=== PATIENT | female | born 1940 | race Caucasian/White ===

== ENCOUNTER 2022-02-08 08:48 | Inpatient (IN) | payer MEDICARE, OTHER ==
[2022-02-08] MEDS ORDERED: Sodium Chloride 0.9% 1,000 ML IV ONE (08:58)
[2022-02-08] MEDS ORDERED: Sodium Chloride 0.9% 10 ML Syringe FLUSH PRN (08:58)
[2022-02-08] MEDS ORDERED: Albuterol/Ipratropium 3.0-0.5 MG/3 ML Neb Soln NEB ONE ×2 (09:00→10:24)
[2022-02-08] MEDS ORDERED: Ondansetron 4 MG/2 ML SDV IVPUSH ONE (09:35)
[2022-02-08 09:54] LABS: ANION GAP 10.6 mmol/L (5-15); CHLORIDE,CL 95 mmol/L (98-107); SODIUM,NA 131 mmol/L (136-145)
[2022-02-08] MEDS ORDERED: Albuterol/Ipratropium 3.0-0.5 MG/3 ML Neb Soln ONE (10:25)
[2022-02-08] MEDS ORDERED: Iopamidol 755 Mg/ML 75 ML Bottle IVPUSH ONE (10:27)
[2022-02-08] MEDS ORDERED: Sodium Chloride 0.9% 100 ML IV SCH (10:30)
[2022-02-08] MEDS ORDERED: Piperacillin/Tazobactam 4.5 GM in Sodium Chloride 0.9% 100 ML IV ONE (11:44)
[2022-02-08] MEDS ORDERED: Acetaminophen 325 MG Tab PO PRN (12:34)
[2022-02-08] MEDS ORDERED: Rosuvastatin 10 MG Tab PO SCH (12:45)
[2022-02-08] MEDS ORDERED: Levofloxacin/Dextrose 5%-Water 750 MG in Premix Bag 1 BAG IV SCH (13:00)
[2022-02-08] MEDS ORDERED: Calcium Carbonate 600 MG Tab PO SCH (13:30)
[2022-02-08] MEDS: DULoxetine 30 MG Cap PO SCH (13:35)
[2022-02-08] MEDS: Lutein/Minerals/Vitamins A, C & E Tab PO SCH (13:35)
[2022-02-08] MEDS: Multivitamins with Minerals/Iron/Folic Acid/Lycopene Tab PO SCH (13:35)
[2022-02-08] MEDS: Calcium Carbonate 600 MG Tab PO SCH ×2 (13:35→20:05)
[2022-02-08] MEDS ORDERED: Sodium Chloride 0.9% 1,000 ML IV SCH ×2 (15:45→19:30)
[2022-02-08] MEDS: Albuterol/Ipratropium 3.0-0.5 MG/3 ML Neb Soln NEB PRN (15:53)
[2022-02-08] MEDS ORDERED: Sodium Chloride 0.9% 500 ML IV SCH (19:10)
[2022-02-08 19:20] LABS: O2 DELIVERY DEVICE NASAL CANNULA
[2022-02-08 19:21] LABS: BASE EXCESS ARTERIAL -3 mmol/L (-2-3); BICARBONATE,ARTERIAL 22.4 mmol/L (22-26); O2 SATURATION ARTERIAL 94 % (95-98); PCO2 ARTERIAL 39 mmHG (35-45); PO2 ARTERIAL 75 mmHG (80-105)
[2022-02-08] MEDS: rOPINIRole 0.25 MG Tab PO SCH (20:05)
[2022-02-08] MEDS: Latanoprost 0.005% Ophth Soln 2.5 ML Bottle EYEBOTH SCH (20:05)
[2022-02-08] MEDS ORDERED: Ibuprofen 400 MG Tab PO PRN (20:33)
[2022-02-09] MEDS: Ondansetron 4 MG Tab.DIS PO PRN ×2 (01:02→17:25)
[2022-02-09] MEDS ORDERED: Sodium Chloride 0.9% 1,000 ML IV ONE ×2 (01:12→01:25)
[2022-02-09 07:53] LABS: ANION GAP 9.5 mmol/L (5-15)
[2022-02-09] MEDS: Multivitamins with Minerals/Iron/Folic Acid/Lycopene Tab PO SCH (08:53)
[2022-02-09] MEDS: Lutein/Minerals/Vitamins A, C & E Tab PO SCH (08:53)
[2022-02-09] MEDS: Calcium Carbonate 600 MG Tab PO SCH ×2 (08:53→20:21)
[2022-02-09] MEDS: Pantoprazole 40 MG Tab.CR PO SCH (08:53)
[2022-02-09] MEDS: DULoxetine 30 MG Cap PO SCH (08:53)
[2022-02-09] MEDS ORDERED: Losartan 50 MG Tab PO SCH (09:00)
[2022-02-09] MEDS ORDERED: Magnesium Hydroxide 400 MG/5 ML Susp 30 ML Cup PO SCH (09:00)
[2022-02-09] MEDS: Enoxaparin 40 MG/0.4 ML Syringe SUBCUT SCH (10:37)
[2022-02-09] MEDS: Sodium Chloride 0.9% 150 ML Bag IV PRN (13:02)
[2022-02-09] MEDS: Levofloxacin/Dextrose 5%-Water 750 MG in Premix Bag 1 BAG IV SCH (14:53)
[2022-02-09] MEDS: rOPINIRole 0.25 MG Tab PO SCH (20:20)
[2022-02-09] MEDS: Rosuvastatin 10 MG Tab PO SCH (20:20)
[2022-02-09] MEDS: Magnesium Hydroxide 400 MG/5 ML Susp 30 ML Cup PO SCH (20:21)
[2022-02-09] MEDS: Latanoprost 0.005% Ophth Soln 2.5 ML Bottle EYEBOTH SCH (20:32)
[2022-02-09] MEDS: Albuterol/Ipratropium 3.0-0.5 MG/3 ML Neb Soln NEB PRN (22:55)
[2022-02-10] MEDS: Albuterol/Ipratropium 3.0-0.5 MG/3 ML Neb Soln NEB PRN ×2 (03:07→08:27)
[2022-02-10 07:58] LABS: ANION GAP 9.4 mmol/L (5-15); CHLORIDE,CL 99 mmol/L (98-107); SODIUM,NA 132 mmol/L (136-145)
[2022-02-10] MEDS: Calcium Carbonate 600 MG Tab PO SCH ×2 (08:11→20:24)
[2022-02-10] MEDS: Multivitamins with Minerals/Iron/Folic Acid/Lycopene Tab PO SCH (08:12)
[2022-02-10] MEDS: DULoxetine 30 MG Cap PO SCH (08:12)
[2022-02-10] MEDS: Lutein/Minerals/Vitamins A, C & E Tab PO SCH (08:12)
[2022-02-10] MEDS: Pantoprazole 40 MG Tab.CR PO SCH (08:12)
[2022-02-10] MEDS: Enoxaparin 40 MG/0.4 ML Syringe SUBCUT SCH (10:14)
[2022-02-10] MEDS: predniSONE 20 MG Tab PO SCH (11:23)
[2022-02-10] MEDS: guaiFENesin 600 MG Tab.ER PO SCH ×2 (11:23→20:24)
[2022-02-10] MEDS: Losartan 50 MG Tab PO SCH (11:24)
[2022-02-10] MEDS: Albuterol/Ipratropium 3.0-0.5 MG/3 ML Neb Soln NEB SCH ×3 (12:46→20:26)
[2022-02-10] MEDS: Levofloxacin/Dextrose 5%-Water 750 MG in Premix Bag 1 BAG IV SCH (14:54)
[2022-02-10] MEDS: Rosuvastatin 10 MG Tab PO SCH (20:24)
[2022-02-10] MEDS: Melatonin 3 MG Tab PO SCH (20:25)
[2022-02-10] MEDS: rOPINIRole 0.25 MG Tab PO SCH (20:25)
[2022-02-10] MEDS: Magnesium Hydroxide 400 MG/5 ML Susp 30 ML Cup PO SCH (20:26)
[2022-02-10] MEDS: Latanoprost 0.005% Ophth Soln 2.5 ML Bottle EYEBOTH SCH (20:28)
[2022-02-10] MEDS: Ondansetron 4 MG Tab.DIS PO PRN (22:20)
[2022-02-11] MEDS: Albuterol/Ipratropium 3.0-0.5 MG/3 ML Neb Soln NEB SCH ×6 (01:23→20:55)
[2022-02-11 08:14] LABS: ANION GAP 9.3 mmol/L (5-15); CHLORIDE,CL 100 mmol/L (98-107); SODIUM,NA 137 mmol/L (136-145)
[2022-02-11] MEDS: DULoxetine 30 MG Cap PO SCH (09:34)
[2022-02-11] MEDS: guaiFENesin 600 MG Tab.ER PO SCH ×2 (09:34→20:56)
[2022-02-11] MEDS: Multivitamins with Minerals/Iron/Folic Acid/Lycopene Tab PO SCH (09:34)
[2022-02-11] MEDS: predniSONE 20 MG Tab PO SCH (09:35)
[2022-02-11] MEDS: Losartan 50 MG Tab PO SCH (09:35)
[2022-02-11] MEDS: Calcium Carbonate 600 MG Tab PO SCH ×2 (09:35→20:56)
[2022-02-11] MEDS: Lutein/Minerals/Vitamins A, C & E Tab PO SCH (09:35)
[2022-02-11] MEDS: Enoxaparin 40 MG/0.4 ML Syringe SUBCUT SCH (09:35)
[2022-02-11] MEDS: Pantoprazole 40 MG Tab.CR PO SCH (09:35)
[2022-02-11] MEDS: Levofloxacin/Dextrose 5%-Water 750 MG in Premix Bag 1 BAG IV SCH (15:45)
[2022-02-11] MEDS: Sodium Chloride 0.9% 150 ML Bag IV PRN (16:48)
[2022-02-11] MEDS ORDERED: Saliva Substitute Oral Spray 120 ML Bottle MUCMEM PRN (17:08)
[2022-02-11] MEDS ORDERED: Sodium Chloride 0.9% 100 ML IV SCH (19:45)
[2022-02-11] MEDS: Piperacillin/Tazobactam/Dext 3.375 GM in Premix Bag 1 BAG IV SCH (20:54)
[2022-02-11] MEDS: Rosuvastatin 10 MG Tab PO SCH (20:55)
[2022-02-11] MEDS: Magnesium Hydroxide 400 MG/5 ML Susp 30 ML Cup PO SCH (20:55)
[2022-02-11] MEDS: Melatonin 3 MG Tab PO SCH (20:55)
[2022-02-11] MEDS: rOPINIRole 0.25 MG Tab PO SCH (20:56)
[2022-02-11] MEDS: Latanoprost 0.005% Ophth Soln 2.5 ML Bottle EYEBOTH SCH (20:57)
[2022-02-12] MEDS: Piperacillin/Tazobactam/Dext 3.375 GM in Premix Bag 1 BAG IV SCH ×4 (01:23→17:20)
[2022-02-12] MEDS: Albuterol/Ipratropium 3.0-0.5 MG/3 ML Neb Soln NEB SCH ×6 (01:23→20:39)
[2022-02-12] MEDS: Multivitamins with Minerals/Iron/Folic Acid/Lycopene Tab PO SCH (08:12)
[2022-02-12] MEDS: guaiFENesin 600 MG Tab.ER PO SCH ×2 (08:12→20:39)
[2022-02-12] MEDS: Calcium Carbonate 600 MG Tab PO SCH ×2 (08:12→20:40)
[2022-02-12] MEDS: predniSONE 20 MG Tab PO SCH (08:12)
[2022-02-12] MEDS: Losartan 50 MG Tab PO SCH (08:13)
[2022-02-12] MEDS: DULoxetine 30 MG Cap PO SCH (08:13)
[2022-02-12] MEDS: Lutein/Minerals/Vitamins A, C & E Tab PO SCH (08:13)
[2022-02-12] MEDS: Pantoprazole 40 MG Tab.CR PO SCH (08:13)
[2022-02-12 08:34] LABS: ANION GAP 8.3 mmol/L (5-15); CHLORIDE,CL 103 mmol/L (98-107); SODIUM,NA 140 mmol/L (136-145)
[2022-02-12] MEDS: Enoxaparin 40 MG/0.4 ML Syringe SUBCUT SCH (10:14)
[2022-02-12] MEDS ORDERED: Potassium Chloride 20 MEQ Tab.ER PO ONE (11:51)
[2022-02-12] MEDS: Rosuvastatin 10 MG Tab PO SCH (20:39)
[2022-02-12] MEDS: rOPINIRole 0.25 MG Tab PO SCH (20:39)
[2022-02-12] MEDS: Magnesium Hydroxide 400 MG/5 ML Susp 30 ML Cup PO SCH (20:39)
[2022-02-12] MEDS: Melatonin 3 MG Tab PO SCH (20:40)
[2022-02-12] MEDS: Latanoprost 0.005% Ophth Soln 2.5 ML Bottle EYEBOTH SCH (20:41)
[2022-02-13] MEDS: Albuterol/Ipratropium 3.0-0.5 MG/3 ML Neb Soln NEB SCH ×4 (00:01→13:18)
[2022-02-13] MEDS: Piperacillin/Tazobactam/Dext 3.375 GM in Premix Bag 1 BAG IV SCH ×3 (00:03→12:54)
[2022-02-13 08:12] LABS: CHLORIDE,CL 105 mmol/L (98-107); SODIUM,NA 141 mmol/L (136-145)
[2022-02-13] MEDS: Calcium Carbonate 600 MG Tab PO SCH (08:45)
[2022-02-13] MEDS: Lutein/Minerals/Vitamins A, C & E Tab PO SCH (08:45)
[2022-02-13] MEDS: DULoxetine 30 MG Cap PO SCH (08:45)
[2022-02-13] MEDS: Multivitamins with Minerals/Iron/Folic Acid/Lycopene Tab PO SCH (08:45)
[2022-02-13] MEDS: guaiFENesin 600 MG Tab.ER PO SCH (08:46)
[2022-02-13] MEDS: predniSONE 20 MG Tab PO SCH (08:47)
[2022-02-13] MEDS: Pantoprazole 40 MG Tab.CR PO SCH (08:47)
[2022-02-13] MEDS: Losartan 50 MG Tab PO SCH (08:48)
[2022-02-13] MEDS: Enoxaparin 40 MG/0.4 ML Syringe SUBCUT SCH ×2 (08:55→10:00)
[2022-02-13 11:34] VITALS: BP 141/61
[2022-02-13 13:21] VITALS: PULSE 93
[2022-02-13] MEDS ORDERED: Potassium Chloride 10 MEQ Tab.ER PO ONE (14:44)
[2022-02-14] MEDS ORDERED: predniSONE 20 MG Tab PO SCH (09:00)
== END 2022-02-13 14:48 | disposition swing bed (61) | DRG 193 ==
LOC: KA.ED 08:48 → KA.MS 11:56
PROVIDERS: ADMIT Physician Assistant Medical; ATTEND Student in an Organized Health Care Education/Training Program
DX: J15.4 Pneumonia due to other streptococci (principal); J96.01 Acute respiratory failure with hypoxia; E87.1 Hypo-osmolality and hyponatremia; E87.6 Hypokalemia; D64.9 Anemia, unspecified; R74.8 Abnormal levels of other serum enzymes; E88.09 Other disorders of plasma-protein metabolism, not elsewhere classified; J18.9 Pneumonia, unspecified organism; I25.10 Atherosclerotic heart disease of native coronary artery without angina pectoris; I70.0 Atherosclerosis of aorta; I27.20 Pulmonary hypertension, unspecified; I65.23 Occlusion and stenosis of bilateral carotid arteries; R09.02 Hypoxemia; K44.9 Diaphragmatic hernia without obstruction or gangrene; K59.00 Constipation, unspecified; E78.5 Hyperlipidemia, unspecified; G25.81 Restless legs syndrome; H40.9 Unspecified glaucoma; H91.90 Unspecified hearing loss, unspecified ear; H35.30 Unspecified macular degeneration; R73.03 Prediabetes; E78.00 Pure hypercholesterolemia, unspecified; H54.7 Unspecified visual loss; J45.909 Unspecified asthma, uncomplicated; I10 Essential (primary) hypertension; G89.29 Other chronic pain; M54.9 Dorsalgia, unspecified; J15.1 Pneumonia due to Pseudomonas; K21.9 Gastro-esophageal reflux disease without esophagitis; Z96.651 Presence of right artificial knee joint; G43.909 Migraine, unspecified, not intractable, without status migrainosus; K58.9 Irritable bowel syndrome, unspecified; M85.80 Other specified disorders of bone density and structure, unspecified site; Z86.19 Personal history of other infectious and parasitic diseases; Z98.49 Cataract extraction status, unspecified eye; Z90.710 Acquired absence of both cervix and uterus; Z87.891 Personal history of nicotine dependence; Z79.52 Long term (current) use of systemic steroids; M19.90 Unspecified osteoarthritis, unspecified site; F32.A Depression, unspecified; F41.9 Anxiety disorder, unspecified; Z88.5 Allergy status to narcotic agent; Z88.1 Allergy status to other antibiotic agents; Z88.7 Allergy status to serum and vaccine; Z87.440 Personal history of urinary (tract) infections; Z88.8 Allergy status to other drugs, medicaments and biological substances; Z79.84 Long term (current) use of oral hypoglycemic drugs; Z79.899 Other long term (current) drug therapy; Z20.822 Contact with and (suspected) exposure to COVID-19
CPT/HCPCS: 36415; 36600; 71045; 71275; 80053; 81001; 82803; 83605; 83735; 84145; 84484; 85025; 86140; 87040; 87070; 87186; 87205; 87641; 93005; 93010; 94640; 96374; 96375; 97161-GP; 99284; 99285-25; A9270-GY; J1650; J1956; J2405; J2543; J3370; J7030; J7040; J7050; J7512; J7620-GY; Q9967; U0002

== ENCOUNTER 2022-02-13 13:30 | Inpatient (IN) | payer MEDICARE, OTHER ==
[2022-02-13] MEDS ORDERED: Ondansetron 4 MG Tab.DIS PO PRN (14:34)
[2022-02-13] MEDS ORDERED: Sodium Chloride 0.9% 100 ML IV SCH (14:34)
[2022-02-13] MEDS ORDERED: Sodium Chloride 0.9% 10 ML Syringe FLUSH PRN (14:34)
[2022-02-13] MEDS ORDERED: Ibuprofen 400 MG Tab PO PRN (14:34)
[2022-02-13] MEDS ORDERED: Sodium Chloride 0.9% 150 ML Bag IV PRN (14:34)
[2022-02-13] MEDS ORDERED: Acetaminophen 325 MG Tab PO PRN (14:34)
[2022-02-13] MEDS ORDERED: Saliva Substitute Oral Spray 120 ML Bottle MUCMEM PRN (14:34)
[2022-02-13] MEDS: Albuterol/Ipratropium 3.0-0.5 MG/3 ML Neb Soln NEB SCH ×2 (17:27→20:22)
[2022-02-13] MEDS: Piperacillin/Tazobactam/Dext 3.375 GM in Premix Bag 1 BAG IV SCH (17:54)
[2022-02-13] MEDS: Magnesium Hydroxide 400 MG/5 ML Susp 30 ML Cup PO SCH (20:22)
[2022-02-13] MEDS: Latanoprost 0.005% Ophth Soln 2.5 ML Bottle EYEBOTH SCH (20:22)
[2022-02-13] MEDS: Rosuvastatin 10 MG Tab PO SCH (20:23)
[2022-02-13] MEDS: Calcium Carbonate 600 MG Tab PO SCH (20:23)
[2022-02-13] MEDS: guaiFENesin 600 MG Tab.ER PO SCH (20:23)
[2022-02-13] MEDS: rOPINIRole 0.25 MG Tab PO SCH (20:23)
[2022-02-13] MEDS: Melatonin 3 MG Tab PO SCH (20:23)
[2022-02-14] MEDS: Piperacillin/Tazobactam/Dext 3.375 GM in Premix Bag 1 BAG IV SCH ×5 (00:07→23:59)
[2022-02-14] MEDS: Albuterol/Ipratropium 3.0-0.5 MG/3 ML Neb Soln NEB SCH ×7 (00:07→23:59)
[2022-02-14] MEDS: Pantoprazole 40 MG Tab.CR PO SCH ×2 (05:53→06:30)
[2022-02-14] MEDS: DULoxetine 30 MG Cap PO SCH (08:38)
[2022-02-14] MEDS: Lutein/Minerals/Vitamins A, C & E Tab PO SCH (08:39)
[2022-02-14] MEDS: Multivitamins with Minerals/Iron/Folic Acid/Lycopene Tab PO SCH (08:40)
[2022-02-14] MEDS: Calcium Carbonate 600 MG Tab PO SCH ×2 (08:40→20:28)
[2022-02-14] MEDS: predniSONE 20 MG Tab PO SCH (08:41)
[2022-02-14] MEDS: guaiFENesin 600 MG Tab.ER PO SCH ×2 (08:41→20:28)
[2022-02-14] MEDS: Losartan 50 MG Tab PO SCH (08:42)
[2022-02-14] MEDS ORDERED: predniSONE 20 MG Tab PO SCH (09:00)
[2022-02-14] MEDS: Enoxaparin 40 MG/0.4 ML Syringe SUBCUT SCH (09:04)
[2022-02-14] MEDS: Latanoprost 0.005% Ophth Soln 2.5 ML Bottle EYEBOTH SCH (20:28)
[2022-02-14] MEDS: rOPINIRole 0.25 MG Tab PO SCH (20:28)
[2022-02-14] MEDS: Rosuvastatin 10 MG Tab PO SCH (20:28)
[2022-02-14] MEDS: Melatonin 3 MG Tab PO SCH (20:28)
[2022-02-14] MEDS: Magnesium Hydroxide 400 MG/5 ML Susp 30 ML Cup PO SCH (20:28)
[2022-02-15] MEDS: Albuterol/Ipratropium 3.0-0.5 MG/3 ML Neb Soln NEB SCH ×5 (04:42→22:22)
[2022-02-15] MEDS: Pantoprazole 40 MG Tab.CR PO SCH ×2 (06:24→06:32)
[2022-02-15] MEDS: Losartan 50 MG Tab PO SCH (09:18)
[2022-02-15] MEDS: Calcium Carbonate 600 MG Tab PO SCH ×2 (09:18→20:20)
[2022-02-15] MEDS: Lutein/Minerals/Vitamins A, C & E Tab PO SCH (09:18)
[2022-02-15] MEDS: DULoxetine 30 MG Cap PO SCH (09:19)
[2022-02-15] MEDS: Ciprofloxacin 500 MG Tab PO SCH ×2 (09:19→20:20)
[2022-02-15] MEDS: Amoxicillin/Clavulanate K 875-125 MG Tab PO SCH ×2 (09:19→20:20)
[2022-02-15] MEDS: predniSONE 20 MG Tab PO SCH (09:19)
[2022-02-15] MEDS: Multivitamins with Minerals/Iron/Folic Acid/Lycopene Tab PO SCH (09:20)
[2022-02-15] MEDS: guaiFENesin 600 MG Tab.ER PO SCH ×2 (09:20→20:20)
[2022-02-15] MEDS: Enoxaparin 40 MG/0.4 ML Syringe SUBCUT SCH (09:21)
[2022-02-15] MEDS: rOPINIRole 0.25 MG Tab PO SCH (20:20)
[2022-02-15] MEDS: Melatonin 3 MG Tab PO SCH (20:20)
[2022-02-15] MEDS: Latanoprost 0.005% Ophth Soln 2.5 ML Bottle EYEBOTH SCH (20:20)
[2022-02-15] MEDS: Rosuvastatin 10 MG Tab PO SCH (20:20)
[2022-02-15] MEDS: Magnesium Hydroxide 400 MG/5 ML Susp 30 ML Cup PO SCH (20:20)
[2022-02-16] MEDS: Pantoprazole 40 MG Tab.CR PO SCH ×2 (05:27→06:30)
[2022-02-16] MEDS: Albuterol/Ipratropium 3.0-0.5 MG/3 ML Neb Soln NEB SCH ×2 (05:27→11:00)
[2022-02-16 07:58] LABS: ANION GAP 10.2 mmol/L (5-15); CHLORIDE,CL 103 mmol/L (98-107); SODIUM,NA 140 mmol/L (136-145)
[2022-02-16 08:31] VITALS: BP 102/60
[2022-02-16] MEDS: Lutein/Minerals/Vitamins A, C & E Tab PO SCH (08:31)
[2022-02-16] MEDS: Calcium Carbonate 600 MG Tab PO SCH (08:31)
[2022-02-16] MEDS: Multivitamins with Minerals/Iron/Folic Acid/Lycopene Tab PO SCH (08:32)
[2022-02-16] MEDS: guaiFENesin 600 MG Tab.ER PO SCH (08:32)
[2022-02-16] MEDS: DULoxetine 30 MG Cap PO SCH (08:32)
[2022-02-16] MEDS: Losartan 50 MG Tab PO SCH (08:32)
[2022-02-16] MEDS: Amoxicillin/Clavulanate K 875-125 MG Tab PO SCH (08:33)
[2022-02-16] MEDS: predniSONE 20 MG Tab PO SCH (08:33)
[2022-02-16] MEDS: Ciprofloxacin 500 MG Tab PO SCH (08:34)
[2022-02-16] MEDS ORDERED: Potassium Chloride 10 MEQ Tab.ER PO ONE (09:55)
[2022-02-16 11:28] VITALS: PULSE 88
== END 2022-02-16 13:32 | disposition home health service (06) | DRG 195 ==
LOC: KA.MS 14:34 → UNDOADMIN 14:48
PROVIDERS: ADMIT Nurse Practitioner Family; ATTEND Nurse Practitioner Family
DX: J18.9 Pneumonia, unspecified organism (principal); E87.6 Hypokalemia; D64.9 Anemia, unspecified; E88.09 Other disorders of plasma-protein metabolism, not elsewhere classified; I10 Essential (primary) hypertension; I25.10 Atherosclerotic heart disease of native coronary artery without angina pectoris; I27.20 Pulmonary hypertension, unspecified; I65.23 Occlusion and stenosis of bilateral carotid arteries; K21.9 Gastro-esophageal reflux disease without esophagitis; K44.9 Diaphragmatic hernia without obstruction or gangrene; K59.00 Constipation, unspecified; R73.03 Prediabetes; E78.5 Hyperlipidemia, unspecified; G25.81 Restless legs syndrome; F32.A Depression, unspecified; H40.9 Unspecified glaucoma; H91.90 Unspecified hearing loss, unspecified ear; H54.7 Unspecified visual loss; E78.00 Pure hypercholesterolemia, unspecified; J45.909 Unspecified asthma, uncomplicated; Z96.659 Presence of unspecified artificial knee joint; G89.29 Other chronic pain; M54.9 Dorsalgia, unspecified; M85.80 Other specified disorders of bone density and structure, unspecified site; Z98.49 Cataract extraction status, unspecified eye; Z97.4 Presence of external hearing-aid; Z87.440 Personal history of urinary (tract) infections; Z88.5 Allergy status to narcotic agent; Z88.7 Allergy status to serum and vaccine; Z88.8 Allergy status to other drugs, medicaments and biological substances; Z79.899 Other long term (current) drug therapy; Z90.710 Acquired absence of both cervix and uterus
CPT/HCPCS: 36415; 80053; 85025; 94640; 97110-GP; 97161-GP; A9270-GY; J1650; J2543; J7512; J7620-GY

== ENCOUNTER 2024-03-14 13:12 | Emergency (ER) | payer MEDICARE, OTHER ==
[2024-03-14] MEDS ORDERED: Sodium Chloride 0.9% 10 ML Syringe FLUSH PRN (13:14)
[2024-03-14 13:35] LABS: BASOPHILS ABSOLUTE AUTO 0.07 10^3/uL (0.00-0.10); BASOPHILS PERCENT AUTO 0.6 % (0.0-1.0); EOSINOPHILS ABSOLUTE AUTO 0.19 10^3/uL (0.10-0.30); EOSINOPHILS PERCENT AUTO 1.7 % (1.0-3.0); HEMATOCRIT 42.7 % (37.0-47.0); HEMOGLOBIN 13.6 g/dL (12.0-16.0); IMMATURE GRAN ABSOLUTE AUTO 0.02 10^3/uL (0.00-0.50); IMMATURE GRAN PERCENT AUTO 0.2 % (0.0-5.0); LYMPHOCYTES ABSOLUTE AUTO 1.48 10^3/uL (1.00-4.00); LYMPHOCYTES PERCENT AUTO 13.6 % (20.0-40.0); MEAN CORPUSCULAR HEMOGLOBIN 28.9 pg (27.0-31.0); MEAN CORPUSCULAR HGB CONC 31.9 g/dL (32.0-36.0); MEAN CORPUSCULAR VOLUME 90.9 fL (82.0-92.0); MONOCYTES ABSOLUTE AUTO 0.96 10^3/uL (0.10-0.80); MONOCYTES PERCENT AUTO 8.8 % (2.0-8.0); NEUTROPHILS ABSOLUTE AUTO 8.15 10^3/uL (2.50-7.00); NEUTROPHILS PERCENT AUTO 75.1 % (50.0-70.0); PLATELET COUNT,PLT 505 10^3/uL (150-400); RED CELL DISTRIBUTION WIDTH 12.8 % (11.5-14.5); WHITE BLOOD CELL COUNT,WBC 10.87 10^3/uL (5.00-10.00)
[2024-03-14 13:50] LABS: ALANINE AMINOTRANSFERASE,ALT 14 U/L (14-63); ALBUMIN 2.28 g/dL (3.40-5.00); ALKALINE PHOSPHATASE 101 U/L (46-116); ANION GAP 8.6 mmol/L (5-15); ASPARTATE AMNIOTRANSFERASE,AST 23 U/L (15-37); BILIRUBIN TOTAL 0.5 mg/dL (0.2-1.0); BLOOD UREA NITROGEN,BUN 18 mg/dL (7-18); CALCIUM 9.5 mg/dL (8.7-10.3); CARBON DIOXIDE,CO2 36.7 mmol/L (21.0-32.0); CHLORIDE,CL 98 mmol/L (98-107); CREATININE 1.04 mg/dL (0.51-1.17); GLUCOSE RANDOM 103 mg/dL (70-140); POTASSIUM,K 4.3 mmol/L (3.5-5.1); PROTEIN TOTAL,TP 7.6 g/dL (6.4-8.2); SODIUM,NA 139 mmol/L (136-145)
[2024-03-14 13:52] LABS: ESTIMATED GFR 53 mL/min (>=60)
[2024-03-14 14:17] LABS: B-TYPE NATRIURETIC PEPTIDE,BNP 79 pg/mL (0-100)
[2024-03-14] MEDS: Sodium Chloride 0.9% 100 ML IV SCH (14:23)
[2024-03-14] MEDS: Iopamidol 755 Mg/ML 100 ML Bottle IV ONE (14:23)
[2024-03-14 14:56] LABS: INFLUENZA A NAA NEGATIVE (NEGATIVE); INFLUENZA B NAA NEGATIVE (NEGATIVE); RESPIRATORY SYNCYTIAL VIR NAA NEGATIVE (NEGATIVE)
[2024-03-14 15:01] LABS: CORONAVIRUS COVID-19 NAA NEGATIVE (NEGATIVE)
[2024-03-14 16:25] VITALS: BP 150/54; PULSE 90
== END 2024-03-14 16:50 | disposition home or self-care (01) ==
LOC: KA.ED 13:12
DX: J18.9 Pneumonia, unspecified organism (principal); J98.4 Other disorders of lung; R09.02 Hypoxemia; E78.00 Pure hypercholesterolemia, unspecified; I10 Essential (primary) hypertension; K21.9 Gastro-esophageal reflux disease without esophagitis; Z88.1 Allergy status to other antibiotic agents; Z88.5 Allergy status to narcotic agent; Z88.7 Allergy status to serum and vaccine; Z88.8 Allergy status to other drugs, medicaments and biological substances; Z79.899 Other long term (current) drug therapy; Z79.82 Long term (current) use of aspirin; Z86.19 Personal history of other infectious and parasitic diseases; Z78.9 Other specified health status
CPT/HCPCS: 0241U; 36415; 71045; 71275; 80053; 83605; 83880; 84484; 85025; 85379; 85730; 87040; 93005; 99285; J3490; Q9967

== ENCOUNTER 2024-03-15 11:41 | Emergency (ER) | payer MEDICARE, OTHER ==
[2024-03-15] MEDS ORDERED: Sodium Chloride 0.9% 10 ML Syringe FLUSH PRN (11:59)
[2024-03-15 12:16] LABS: BASOPHILS ABSOLUTE AUTO 0.07 10^3/uL (0.00-0.10); BASOPHILS PERCENT AUTO 0.7 % (0.0-1.0); EOSINOPHILS ABSOLUTE AUTO 0.22 10^3/uL (0.10-0.30); EOSINOPHILS PERCENT AUTO 2.2 % (1.0-3.0); HEMATOCRIT 41.1 % (37.0-47.0); IMMATURE GRAN ABSOLUTE AUTO 0.03 10^3/uL (0.00-0.50); IMMATURE GRAN PERCENT AUTO 0.3 % (0.0-5.0); LYMPHOCYTES ABSOLUTE AUTO 1.88 10^3/uL (1.00-4.00); LYMPHOCYTES PERCENT AUTO 18.7 % (20.0-40.0); MEAN CORPUSCULAR HEMOGLOBIN 28.7 pg (27.0-31.0); MEAN CORPUSCULAR HGB CONC 31.6 g/dL (32.0-36.0); MEAN CORPUSCULAR VOLUME 90.7 fL (82.0-92.0); MEAN PLATELET VOLUME 9.1 fL (7.4-10.4); MONOCYTES ABSOLUTE AUTO 0.95 10^3/uL (0.10-0.80); MONOCYTES PERCENT AUTO 9.5 % (2.0-8.0); NEUTROPHILS ABSOLUTE AUTO 6.89 10^3/uL (2.50-7.00); NEUTROPHILS PERCENT AUTO 68.6 % (50.0-70.0); PLATELET COUNT,PLT 505 10^3/uL (150-400); RED BLOOD CELL COUNT 4.53 10^6/uL (3.80-5.50); RED CELL DISTRIBUTION WIDTH 13.1 % (11.5-14.5); WHITE BLOOD CELL COUNT,WBC 10.04 10^3/uL (5.00-10.00)
[2024-03-15] MEDS: methylPREDNISolone Sodium Succinate 125 MG/2 ML SDV IVPUSH ONE (12:17)
[2024-03-15] MEDS: Sodium Chloride 0.9% 1,000 ML IV ONE (12:17)
[2024-03-15 12:25] LABS: O2 DELIVERY DEVICE NASAL CANNULA
[2024-03-15 12:27] LABS: BICARBONATE,ARTERIAL 30 mmol/L (21-28); O2 SATURATION ARTERIAL 95 %; PCO2 ARTERIAL 40 mmHG (35-48); PH,ARTERIAL 7.49 pH (7.35-7.45); PO2 ARTERIAL 68 mmHG (83-108)
[2024-03-15 12:28] LABS: BASE EXCESS ARTERIAL 6 mmol/L ((-2)-(+3))
[2024-03-15 12:33] LABS: ALANINE AMINOTRANSFERASE,ALT 11 U/L (14-63); ALBUMIN 2.23 g/dL (3.40-5.00); ALKALINE PHOSPHATASE 96 U/L (46-116); ASPARTATE AMNIOTRANSFERASE,AST 19 U/L (15-37); BILIRUBIN TOTAL 0.5 mg/dL (0.2-1.0); BLOOD UREA NITROGEN,BUN 17 mg/dL (7-18); CALCIUM 9.6 mg/dL (8.7-10.3); CARBON DIOXIDE,CO2 35.9 mmol/L (21.0-32.0); CHLORIDE,CL 98 mmol/L (98-107); CREATININE 1.02 mg/dL (0.51-1.17); GLUCOSE RANDOM 92 mg/dL (70-140); POTASSIUM,K 3.9 mmol/L (3.5-5.1); PROTEIN TOTAL,TP 7.3 g/dL (6.4-8.2); SODIUM,NA 139 mmol/L (136-145)
[2024-03-15 12:36] LABS: ESTIMATED GFR 55 mL/min (>=60)
[2024-03-15 16:06] VITALS: BP 147/52; PULSE 80
== END 2024-03-15 16:00 | disposition home or self-care (01) ==
LOC: KA.ED 11:41
DX: R09.02 Hypoxemia (principal); J84.10 Pulmonary fibrosis, unspecified; I10 Essential (primary) hypertension; M19.90 Unspecified osteoarthritis, unspecified site; J45.909 Unspecified asthma, uncomplicated; K21.9 Gastro-esophageal reflux disease without esophagitis; E78.00 Pure hypercholesterolemia, unspecified; Z88.1 Allergy status to other antibiotic agents; Z88.5 Allergy status to narcotic agent; Z88.6 Allergy status to analgesic agent; Z88.7 Allergy status to serum and vaccine; Z88.8 Allergy status to other drugs, medicaments and biological substances; Z79.82 Long term (current) use of aspirin; Z79.84 Long term (current) use of oral hypoglycemic drugs; Z79.899 Other long term (current) drug therapy; Z90.710 Acquired absence of both cervix and uterus; Z87.891 Personal history of nicotine dependence
CPT/HCPCS: 36415; 36600; 80053; 82803; 84484; 85025; 96361; 96374; 99284; 99284-25; J2930; J7030